=== PATIENT | male | born 1970 | race Two or more races ===

== ENCOUNTER → 2024-04-03 | Outpatient (CLI) | payer BC ==
--- NOTE | 2024-04-04 11:30 | US ---
EXAMINATION TYPE: US thyroid st tissue head/neck DATE OF EXAM: 04/03/2024 COMPARISON: [place] and US 2013 CLINICAL INDICATION: Male, 53 years old with history of E05.90 HYPERTHYROIDISM; Hyperthyroidism. TECHNIQUE: Grayscale and color Doppler imaging of the thyroid gland. FINDINGS: GLAND SIZE: Right Lobe: 7.0 x 3.1 x 2.8 cm Overall Parenchyma: Very heterogeneous Left Lobe: 6.0 x 2.8 x 2.7 cm Overall Parenchyma: Very heterogeneous Isthmus Thickness: 0.63 cm NODULES RIGHT: # of nodules measured on right: 0 LEFT: # of nodules measured on left: 0 ISTHMUS: # of nodules measured in the isthmus: 0 Bilateral neck scanned, no evidence of lymphadenopathy. IMPRESSION: 1. No suspicious thyroid nodules. 2. Thyromegaly. 2017 ACR TI-RADS LEVEL: TR-RADS 1 - BENIGN: No FNA *Highest TI-RADS level nodule reported [email or web address] [facility], Workstation: [facility], 04/04/2024 11:28 AM
== END | disposition home or self-care (01) ==
LOC: RADUSWWP 09:53
PROVIDERS: ATTEND Family Medicine
DX: E05.90 Thyrotoxicosis, unspecified without thyrotoxic crisis or storm
CPT/HCPCS: 76536

== ENCOUNTER → 2025-01-11 | Outpatient (CLI) | payer BC ==
[2025-01-11 20:23] LABS: Creatine Kinase 105 U/L (35-257); Rheumatoid Factor, Qnt <15 IU/mL (0-15)
[2025-01-11 21:54] LABS: Anti-DNA, DS unit <1.0 IU/mL; Anti-Smith Ab Interp Negative (Negative); DNA Double-Stranded Negative (Negative); JO-1 IgG Antibody <0.2 AI
[2025-01-12 00:07] LABS: Cyclic Citrull Pep IgG Unit <1.5 U/mL (<=3.9)
[2025-01-12 10:59] LABS: Lead, Blood <0.5 ug/dL (<5.0)
[2025-01-12 13:15] LABS: APTT 42 Sec(s) (<43); Dilute Russell Viper Venom 37 Sec(s) (<44)
[2025-01-12 14:20] LABS: C-ANCA <1:20 Titer (<1:20)
== END | disposition home or self-care (01) ==
LOC: LABWHC1 12:34
PROVIDERS: ATTEND Psychiatry & Neurology Neurology
DX: R20.2 Paresthesia of skin (principal)
CPT/HCPCS: 36415; 82550; 83655; 85613; 85730; 86038; 86039; 86200; 86225; 86235; 86255; 86431